=== PATIENT | female | born 1955 | race African-American/Black ===

== ENCOUNTER 2024-01-06 09:20 | Emergency (ER) | payer MEDICAID ==
[~2024-01-06] VITALS: Ht 162.6 cm; Wt 76.0 kg
[2024-01-06 09:26] VITALS: O2SAT 98
[2024-01-06] MEDS: KETOROLAC 60MG/2ML VIAL IM ONE (10:15)
[2024-01-06] MEDS ORDERED: IBUP-2028 PO (10:37)
[2024-01-06 11:30] VITALS: BP 125/69; PULSE 70; RESP 18; TEMP 98.4
== END 2024-01-06 11:30 | disposition home or self-care (01) ==
LOC: ER 09:22
DX: M54.2 Cervicalgia (principal); I10 Essential (primary) hypertension; I82.499 Acute embolism and thrombosis of other specified deep vein of unspecified lower extremity; V98.8XXA Other specified transport accidents, initial encounter; Y93.89 Activity, other specified; Y92.89 Other specified places as the place of occurrence of the external cause; Y99.8 Other external cause status
CPT/HCPCS: 96372; 99285